=== PATIENT | male | born 1935 | race Caucasian/White ===

== ENCOUNTER → 2023-05-01 11:40 | Outpatient (REF) | payer OTHER, SELFPAY | LOC: HWRAD 11:40 | PROVIDERS: ATTENDING PHYSICIAN Internal Medicine Critical Care Medicine; FAMILY PHYSICIAN Family Medicine | DX: Z87.01 Personal history of pneumonia (recurrent) (principal); R91.8 Other nonspecific abnormal finding of lung field | CPT/HCPCS: 71250 ==

== ENCOUNTER 2023-05-03 21:34 | Inpatient (IN) | payer OTHER, SELFPAY ==
[2023-05-03] VITALS (11 sets, daily range): BP systolic 92–139; BP diastolic 51–75; BMI 27.8; BMI 28.1
[2023-05-03 19:35] LABS: Hematocrit 36.2 % (39.0-52.0); Hemoglobin 12.3 g/dL (13.0-18.0); Mean Corpuscular Hgb 32.3 pg (27.0-31.0); Mean Platelet Volume 11.1 fL (7.4-10.4); Platelet Count 143 10^3/uL (130-400); Red Blood Cell Count 3.81 10^6/uL (4.70-6.10); Red Cell Dist. Width 15.3 % (11.5-14.5); White Blood Cell Count 12.9 10^3/uL (4.8-10.8)
[2023-05-03 19:47] LABS: Lactic Acid 1.3 mmol/L (0.7-2.0)
[2023-05-03 19:50] LABS: ALT (SGPT) 15 U/L (0-50); AST (SGOT) 19 U/L (17-59); Albumin 3.4 g/dl (3.5-5.0); Alkaline Phosphatase 82 U/L (38-126); Blood Urea Nitrogen 30 mg/dl (9-20); Calcium 8.9 mg/dl (8.4-10.2); Carbon Dioxide 26 mmol/L (22-30); Chloride 102 mmol/L (98-107); Glucose 96 mg/dl (70-99); Potassium 3.9 mmol/L (3.5-5.1); Sodium 133 mmol/L (135-145); Total Bilirubin 2.1 mg/dl (0.2-1.3); Total Protein 5.7 g/dl (6.3-8.2); eGFR 48.65
[2023-05-03] MEDS: NSS 1000 IV ×2 (19:57→23:13)
[2023-05-03 20:03] LABS: Absolute Neutrophils -Man Diff 11.9 10^3/uL (1.4-6.5); Band Neutrophils 15 % (0-3); Lymphocytes 2 % (20-51); Segmented Neutrophils 78 % (42-75)
[2023-05-03 20:04] LABS: Monocytes 5 % (2-9); Normal RBC Morphology Yes; Platelets Checked Yes; Total Cells Counted 100
--- NOTE | 2023-05-03 20:32 | ED.GENMED ---
History of Present Illness
General
Chief Complaint: Breathing Problem
Source: patient and spouse
Exam Limitations: none
Time Seen by Provider: 05/03/23 19:06
Nursing documentation reviewed up to this point in time: agreed with
Travel History
Have you had any contact with someone who has COVID-19?: No
Do you have any symptoms of coronavirus? Fever > 100 degrees, chills, cough, shortness of breath, sore throat, loss of taste or smell, muscle aches, or headache?: Yes
Symptoms:: fever
History of Present Illness
History of Present Illness:
Patient to ED iw complaint of fever/chills, SOB. According to spouse symptoms first began on Apr.02, He was evaluated by PCP and place on zithromycin and levaquin for pneumonia as seen on CXR. Pulmonary nodule was also identified and he was
advised to have CT followup, completed on 05/01. Yesterday AM he began with fevers again. Today temp max 102. reports chills. He spoke with pulmonology office. CT results received today of bilateral pneumonia. He as advised by office to
come to ED for admission, IV antibiotics. Pulse ox on arrival 90% RA. BP 96/57
Past History
Past History
ED Past Medical History: CAD, HTN, Hypercholesterolemia, [place], Seizures and Other (CKD)
ED Past Surgical History: Appendectomy, Cardiac (RCA stent), Cholecystectomy and Other (Had Mohs surgery on face yesterday. Had no general anesthesia or Phelps Catheter)
Social History
Tobacco: Former smoker
Alcohol: Daily (Vodka martini)
Personal:
Living: with family
Review of Systems
Review of Systems
Allergies reviewed?: Yes
All Other Systems: ROS reviewed and negative except as documented in HPI and ROS
Constitutional: Reports fever, fatigue and chills
Respiratory: Reports cough and trouble breathing
Cardiac: Reports no symptoms
ABD/GI: Reports no symptoms
: Reports no symptoms
Musculoskeletal: Reports no symptoms
Skin: Reports no symptoms
Neurological: Reports weakness
Psychiatric: Reports no symptoms
Phy Exam
General Physical Exam
General Presentation: mild distress
General age: appears stated age
General Skin: warm and dry
General Habitus: normal
General Mental: alert
Cardiovascular Exam
Cardiovascular Exam: regular rate/rhythm
Pulmonary Exam
Pulmonary Exam: chest non tender
Cough: coarse cough
Breath Sounds: Crackles: left lower and right lower
Gastrointestinal Exam
Gastrointestinal Exam: normal bowel sounds, non tender, soft and no organomegaly
Musculoskeletal Exam
Musculoskeletal Exam: full ROM and neuro vasc intact
Skin Exam
Skin Exam: normal color, warm/dry and no rash
Psychiatric Exam
Psychiatric Exam: normal mood/affect
Scores
Heart Failure Risk
Heart Failure Risk Score: Not Applicable
Course
Orders/Labs/Results
Orders:
Orders
05/03/23 Dinner
Cholesterol Lowering
At Your Request: Limited Participation
Cholesterol Lowering: Sodium, 2 Gram
05/03/23 19:21
Complete Blood Count/With Diff Urgent
Comprehensive Metabolic Panel Urgent
Lactic Acid Urgent
Manual Differential Urgent
05/03/23 19:44
0.9% Sodium Chloride 1000 ml [Nss] 1,000 ml IV BOLUS
05/03/23 19:58
Blood Culture Q30M
IRA Source: Blood/Venous
Specimen Description:
Blood Culture Q30M
IRA Source: Blood/Venous
Specimen Description:
05/03/23 20:30
Aztreonam [Azactam] 2,000 mg IV NOW STA
Vancomycin 1 Gram/200 ml [Vancocin] 1 gram in 200 ml IV NOW
05/03/23 20:43
CR Chest - 2 Views Urgent
Comment:
Reason For Exam: SOB
05/03/23 21:06
Sputum Culture [Respiratory Culture/Gram Stain] Routine
IRA Source: Sputum
Specimen Description:
05/03/23 21:07
Admit/Transfer Patient As Directed
Co-Sign Provider:
Level of Care: Inpatient admission
Assign to:: Telemetry
Physician / Group: jose fink
Diagnosis: Sepsis 2/2 bilat pna, hypoxia
Reason for Telemetry: Arrhythmia
Date to Stop Telemetry: 05/06/23
Time to Stop Telemetry: 11:00
Reason for Hospitalization: Sepsis 2/2 bilat pna, hypoxia
Expected length of stay greater than two midnights?: Yes
ELOS- Estimated Length of Stay in days: 3
I certify the patient meets the requirements for IP care: Yes
Code Status As Directed
Resuscitation Status: Do not resuscitate
Reached after discussion with pt or family/Healthcare POA: Yes
Based on pt advanced directive or healthcare POA form: Yes
Decision communicated with: Per patient with at bedside
DNR Bracelet Application ONCE
05/03/23 21:15
0.9% Sodium Chloride 1000 ml [Nss] 1,000 ml IV BOLUS
05/03/23 21:30
COVID-19 Antigen Urgent
Source: Nasal Swab
Influenza A+B Rapid Molecular Urgent
IRA Source: Nasal Swab
Specimen Description:
05/03/23 22:22
0.9% Sodium Chloride [Nss (Preservative Free)] See Protocol IV PRN PRN
Acetaminophen [Tylenol] 650 mg PO Q4HPRN PRN
FOLic ACID [Folvite] 1 mg 0.9% Sodium Chloride 50 ml [Nss] 50 ml IV DAILYPRN
Lactated Ringers [Lr] 1,000 ml IV 80 mls/hr
Lorazepam [Ativan] 1 mg IV Q1HPRN PRN
Lorazepam [Ativan] 1 mg PO Q2HPRN PRN
Lorazepam [Ativan] 2 mg IV Q1HPRN PRN
05/03/23 22:22
Case Management Consult Once
Case Management Consult: Other
Comment: Substance abuse counseling
DIETARY CONSULT Routine
Reason for Consult: Nutrition support, possible refeeding guidelines
Urinalysis Routine
Date Specimen was Collected: 05/03/23
Time Specimen was Collected: 23:20
Activity As Directed
Activity Level: As Tolerated
MSAS SCORE As Directed
MSAS Score 0-4: Repeat MSAS every 2 hours until 0-4 for three consecutive assessments, then every 4 hours x 48
hours.
MSAS Score 5-7: For MILD withdrawl symptoms. Repeat MSAS and RASS every 2 hours
MSAS Score 8-11: For MODERATE withdrawal symptoms. Repeat MSAS and RASS every 1 hour. Consider ICU or IMU
level of care.
MSAS Score > 11: For SEVERE withdrawal symptoms. Repeat MSAS and RASS every 1 hour. Notify provider, consider
ICU level of care.
MSAS Additional Instructions: If no improvement or no decrease in score from severe to moderate within 12
hours, consult psychiatry
MSAS Notify Provider: Notify provider if patient requires more than 10 mg of Lorazepam in eight hour period.
Vital Signs As Directed
Frequency: Per unit guidelines
O2 Therapy [RESP] Routine
Nasal Cannula Liter Flow: 2 LPM
Titrate/Wean O2 to maintain O2 sat greater than (%): 92
Pulse Ox/spot Check [RESP] Routine
Quantity: 1
Rx Incentive Spirometry [RESP] Routine
Frequency: q1h while awake
Ot Eval And Treat Routine
Pt Eval And Treat Routine
Activity Level: As Tolerated
DX Deep Vein Thrombosis Video Routine
DX Deep Vein Thrombosis Video Routine
05/03/23 22:58
Alcohol Urgent
B-Hydroxybutyrate Urgent
GGTP Urgent
Magnesium Urgent
PTT Urgent
Phosphorus Urgent
Prothrombin Time Urgent
05/04/23 06:00
Complete Blood Count/With Diff IN AM
Comprehensive Metabolic Panel IN AM
05/04/23 08:00
FOLic ACID [Folvite] 1 mg PO DAILY
Levetiracetam [Keppra] 500 mg PO BID
Rosuvastatin Calcium [Crestor] 40 mg PO DAILY
Thiamine Injection 200 mg IV Q12
05/04/23 18:00
Enoxaparin Sodium [Lovenox] 30 mg SC QPM
05/04/23 22:00
LevoFLOXacin 250 MG/50 ML [Levaquin] 250 mg in 50 ml IV Q24H
05/05/23 06:00
Complete Blood Count/With Diff IN AM
Comprehensive Metabolic Panel IN AM
05/06/23 06:00
Complete Blood Count/With Diff IN AM
Comprehensive Metabolic Panel IN AM
05/06/23 11:00
DC Protocol for Telemetry ONCE
05/07/23 08:00
Thiamine HCl [Vitamin B1] 100 mg PO BID
Abnormal Lab Results
05/03/23
19:21
WBC 12.9 H 10^3/uL
(4.8-10.8)
RBC 3.81 L 10^6/uL
(4.70-6.10)
Hgb 12.3 L g/dL
(13.0-18.0)
Hct 36.2 L %
(39.0-52.0)
MCV 95.0 H fL
(80.0-94.0)
MCH 32.3 H pg
(27.0-31.0)
RDW 15.3 H %
(11.5-14.5)
MPV 11.1 H fL
(7.4-10.4)
Abs Neuts (Manual) 11.9 H 10^3/uL
(1.4-6.5)
Segmented Neutrophils 78 H %
(42-75)
Band Neutrophils 15 H %
(0-3)
Lymphocytes (Manual) 2 L %
(20-51)
Sodium 133 L mmol/L
(135-145)
BUN 30 H mg/dl
(9-20)
Creatinine 1.4 H mg/dL
(0.7-1.3)
Total Bilirubin 2.1 H mg/dl
(0.2-1.3)
Total Protein 5.7 L g/dl
(6.3-8.2)
Albumin 3.4 L g/dl
(3.5-5.0)
05/03/23 19:21
05/03/23 19:21
Vital Signs
Initial and Last Documented VS:
Initial Vital Signs
Temp Pulse Resp BP Pulse Ox
98.5 F 70 20 100/51 92
05/03/23 17:12 05/03/23 17:12 05/03/23 17:12 05/03/23 17:12 05/03/23 17:12
Last Documented Vital Signs
Temp Pulse Resp BP Pulse Ox
97.9 F 66 18 134/71 98
05/03/23 22:20 05/03/23 22:20 05/03/23 22:20 05/03/23 22:20 05/03/23 22:20
*Radiology
Radiology exam reviewed: radiology read reviewed
*Pulse Oximetry
Patient hypoxic: yes
*Critical Care Note
Total Time (30-74mins, 75-104mins- exclusive of procedures): Not Applicable
ED Attending Note
-
Portions of this chart may have been created with voice recognition software.� Occasional wrong word or��sound alike� substitutions may have occurred due to the inherent limitations of voice recognition software.
Discharge Plan
Departure
Patient Disposition: Admit
Date of Disposition: 05/03/23
Time of Disposition: 20:42
Presentation/result/management discussed w/ accepting MD/DO: Hospitalist
Patient with high blood pressure during this ER visit?: No
Condition: Fair
Covid-19: Not Applicable
Discharge Problem:
Pneumonia
Interventions
Interventions:
*Risk Screen - Suicide Last Done: 05/03/23 20:00
*General Assessment Last Done: 05/03/23 20:00
*Neglect/Abuse Screening Last Done: 05/03/23 20:00
*ED COVID-19 Vaccine History Last Done: 05/03/23 22:33
*Nursing Disposition Last Done: 05/03/23 22:29
ED- Cardiac Assessment Last Done: 05/03/23 20:00
ED- Pulmonary Assessment Last Done: 05/03/23 20:00
Discharge Date and Time
Discharge Date/Time: 05/03/23 22:30
--- NOTE | 2023-05-03 20:51 | HPS.HSE ---
Addendum entered and electronically signed by Cole Felix MD 05/03/23 21:25:
I saw and examined the patient.
The WORM RAISER or PA's note was reviewed and I agree with the note.
Comment:
HPI
87M see at ER for evaluation of fever/chills, SOB with onset since 04/02/23.
Evaluated by PCP - Rx with Zithromax and Levaquin for pneumonia as seen on CXR.
Pulmonary nodule was also identified and he was advised to have CT followup, completed on 05/01.
Yesterday AM - noted recurrence of fevers with temp max 102. POS chills.
Pul vs PCP send patient to ER .
Pulse ox on arrival 90% RA. BP 96/57
PMHX: CAD, HTN, Hypercholesterolemia, PR, Seizures and Other (CKD)
PSHX: Appendectomy, Cardiac (RCA stent), Cholecystectomy and Other (Had Mohs surgery on face yesterday. Had no general anesthesia or Phelps Catheter)
SHX:
Tobacco: Former smoker
Alcohol: Daily (Vodka martini)
Reviewed VS: afebrile T max 102 at home RR18 POx 92 on RA HR 62 BP 110/52
PE
Gen: mild distress
HEENT: anicteric
Neck: supple
Lungs: b/l basilar crackles. No wheeze
Cor: RRR S1 S2
Abdomen: soft abdomen NT NG
PULMONOLOGIST INTENSIVIST: AAO3 NFND
MS: no edema
Psych: appropriate
Data
WCC 12.9 w Lt shift
Bands 15%
Hgb 12.3
Na 133
BUN 30
Cr 1.4 - base line Cr 0.9 in
eGFR 48 - baseline GFR > 60
TB 2.1
Albumin 3.4
BCx x 2
05/03/23 CXR
New moderate bilateral lower lobe pneumonia.
05/03/23 CT Chest W/o Iv Contrast
- moderate patchy interstitial and confluent alveolar airspace disease in the right middle lobe and basilar portions of both lower lobes consistent with multifocal pneumonia
- 7 mm probably benign noncalcified subpleural pulmonary nodule in the right upper lobe which could be further evaluated for stability with repeat noncontrast CT chest in 6-12 months.
ASSESSMENT & PLAN
Sepsis with hypotension 2/2 PNA
Bilateral multifocal pneumonia per CXR and CTC
Asso. Leucocytosis with Lt shift
R/O bacteremia
- Septic fluid bolus then LR IVF
- IV Vancomycin and IV LVQ ( current GFR dose ) in place of Aztreonam
- Held Propranolol due to hypotension
- LA pending
- f/u BCx
- fall precautions
- Pul consult
DINA 2/2 sepsis
Mild hyponatremia
- f/u Cr in response to IVF
- Adjust Vancomycin and LVQ according to GFR in next 24Hrs
Hypotension 2/2 sepsis
Essential HTN
- Held [employer] Propranolol and lisinopril due to hypotension
- Observe BP in response to septic fluid bolus
7 mm probably benign noncalcified subpleural pulmonary nodule in the right upper lobe
- To repeat noncontrast CT chest in 6-12 months.
HLD
- cont. Rosuvastatin
HX CAD and PR
- cont. ASA and Rosuvastatin
Seizure disorder
- cont. PO l Keppra
HX daily one Vodka martini a day
Low risk for ETOH WDS
- MSAS
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
- on Fenestride
Constipation HX
DVT Px: LMWH per current GFR
Code: Full
IP TLM
Original Note:
Family Physician
-
Family Physician: Roberta George DO
Chief Complaint
-
Fever, chills, shortness of breath
History of Present Illness
87-year-old male complaining of fever chills and shortness of breath for the past month. Patient was evaluated by PCP placed on Zithromax and Levaquin for pneumonia also had a pulmonary nodule identified on 05/01. Yesterday he restarted with fevers
again according to the with a Tmax of 102. He had CT chest today showing bilateral pneumonia and was hypoxic at 90% on room air on arrival to the ER. The patient reports a runny nose with a nonproductive cough and a fever. He denies
headache, sore throat, sneezing, chest pain, palpitations, abdominal pain, nausea, vomiting, diarrhea, urinary symptoms. The patient is past medical history of BPH, HTN, PR, CAD, RCA stent, HLD, basal cell carcinoma with Mohs procedure, former
smoker.
Medical History
Past Medical History
Past Medical History: Reports Other ( BPH, HTN, PR, CAD, RCA stent, HLD, basal cell carcinoma with Mohs procedure, former smoker.)
Past Surgical History: Reports Other (Robotic prostatectomy stone removal December 2021)
Social History
Tobacco: Former Smoker (1 pack a day x 40 years quit age 57)
Alcohol: Daily (1 vodka martini)
Drug: None
Personal:
Living: With Family
Employment: Retired
Family History
Family History: Other (Father age 79 valvular heart problems, mother old age age 86 history hypertension)
Allergies / Home Medications
Allergies reflects when Allergies were last updated in [facility].
Home Medications with original date entered in [facility]
Allergy/Medication List:
Allergies
Allergy/AdvReac Type Severity Reaction Status Date / Time
amoxicillin [From Augmentin] Allergy Unknown Verified 05/03/23 17:12
clavulanic acid Allergy Unknown Verified 05/03/23 17:12
[From Augmentin]
ezetimibe [From Zetia] Allergy Unknown Verified 05/03/23 17:12
Sulfa (Sulfonamide Allergy Unknown Verified 05/03/23 17:12
Antibiotics)
Home Medications
aspirin 81 mg tablet,delayed release 81 mg PO DAILY Blood clot prevention/tx 03/12/19
lisinopril 2.5 mg tablet 2.5 mg PO DAILY Blood pressure 03/12/19
levetiracetam 500 mg tablet 500 mg PO BID #60 tabs 03/13/19
finasteride 5 mg tablet (Proscar) 5 mg PO DAILY Urinary issue 01/01/22
rosuvastatin 40 mg tablet (Crestor) 40 mg PO DAILY High cholesterol 01/01/22
propranolol 60 mg tablet 60 mg PO Daily Blood pressure 01/04/22
acetaminophen 500 mg tablet (Tylenol Extra Strength) 1,000 mg PO QIDPRN PRN fever 05/03/23
ibuprofen 200 mg tablet (Advil) 200 mg PO QIDPRN PRN mild pain 05/03/23
Review of Systems
-
History Source: Patient and Family ( at bedside)
A 12 point ROS was completed and negative except as noted: Yes
Constitutional: Reports Fever and Chills
EENT: Reports Runny Nose; Denies Sore Throat
Respiratory: Reports Cough (Nonproductive) and Trouble Breathing
Cardiac: Denies Chest Pain, Diaphoresis, Palpitations or Syncope
Abdomen/GI: Denies Abdominal Pain, Nausea, Vomiting, Diarrhea, Constipated, Bloody Stools or Black Stools
: Denies Dysuria, Frequency, Flank Pain, Incontinence or Difficulty Voiding
Musculoskeletal: Denies Joint Pain or Edema
Skin: Denies Itching or Rash
Neurological: Denies Dizzy, Headache or Weakness
Endocrine: Reports No Symptoms
Hematologic/Lymphatic: Reports No Symptoms
Psych: Reports Calm
Physical Exam
Vital Signs
Vital Signs
Temp Pulse Resp BP Pulse Ox
98.5 F 62 18 108/52 98
05/03/23 17:12 05/03/23 20:00 05/03/23 20:00 05/03/23 20:00 05/03/23 20:00
Physical Exam
General: Comfortable, Conversant, Fever and Chills; No Pain
HEENT: NormoCephalic, Anicteric, PERRLA, [place] Conjunctivae and No Ptosis
Respiratory: Clear; No Wheezes, Rales or Rhonchi
Cardiac: S1/S2 and Regular Rhythm; No Murmur, Rub, Gallop or Peripheral Edema
Breast: Deferred by me
GI: Soft, Non Tender, Non Distended, Normal Bowel Sounds and No Hepatosplenomegaly
Rectal: Deferred by Provider
Genito-urinary: Deferred by me
Musculoskeletal: No Clubbing, No Cyanosis and No Edema
Skin: Warm and Dry; No Rash
Neuro: AO x 3, No Motor Deficits, Nonfocal/grossly intact, Cranial Nerves Intact and Other (Chronic bilateral hearing aids in place); No Slurred Speech, Facial Droop or Tremors
Psych: Calm
Laboratory Results
-
05/03/23 19:21
05/03/23 19:21
Laboratory Results
Lactic Acid 1.3 mmol/L (0.7-2.0) 05/03/23 19:21
Total Bilirubin 2.1 mg/dl (0.2-1.3) H 05/03/23 19:21
AST 19 U/L (17-59) 05/03/23 19:21
ALT 15 U/L (0-50) 05/03/23 19:21
Alkaline Phosphatase 82 U/L (38-126) 05/03/23 19:21
Data Reviewed
-
Diagnostic Radiology: Report Reviewed by me
CT Scan: Report Reviewed by me
Lab Data: Labs Reviewed by me
Impression/Plan
-
Impression/plan:
Admit to Tele
#Acute hypoxic resp insufficiency 2/2 bilateral PNA
#Sepsis 2/2 bilateral PNA
-90% RA, 96/57
-Blood cultures x 2, sputum culture
-Check influenza, COVID
-Patient given IV vancomycin in ER
-IV Levaquin 500 mg now then 250 Mg daily
-IV NSS sepsis bolus, follow BMP
Then IV LR
-Consult pulmonary
-Tylenol as needed
-Follow CBC, CMP
#Hypotension/HTN�benign
hold lisinopril 2.5 mg daily, propranolol 60 mg daily
IV sepsis bolus
#DINA 2/2 sepsis
Creat 1.4 was 0.9
-IV NSS sepsis bolus, follow BMP
-Then IV LR
#Daily alcohol use
Patient drinks 1 vodka martini daily
-MSAS with protocol - low risk
#CAD/PR
#History of RCA stent
-Continue aspirin, Crestor hold propranolol due to hypotension
#Seizure disorder
-Continue Keppra 500 mg twice daily
#HLD
-Continue Crestor 40 mg daily
#Former smoker
Prior 1 pack a day 42 years stopped age 57
#Mohs surgery to face/basal cell CA
#BPH/massive, bladder stones
-Robotic prostatectomy stone removal December 2021
-Hold Proscar 5 mg daily due to hypotension
#[place] with bilateral hearing aids
DVT prophylaxis
Subcu Lovenox
DNR per patient with present at bedside
[2023-05-03] MEDS: AZACTAM 2000 MG IV (21:01)
[2023-05-03] MEDS: VANCOCIN 200 IV (21:02)
[2023-05-03 21:51] LABS: COVID-19 Antigen Negative (Negative)
--- NOTE | 2023-05-03 22:30 | PTCARENOTE ---
Pt arrived from ED via stretcher. Pt amb to bed from hallway with min assist. AAOx3 - [place] - HOBBS Right Ear. Essential tremors present. Lungs w/ crackles b/l on 2L o2. Sutures to R ear area and R neck from recent Mohs procedure.
[2023-05-03 23:27] LABS: INR 1.27; PT 15.8 Sec (11.4-14.6)
[2023-05-03 23:28] LABS: APTT 37.6 Sec (23.4-35.0)
[2023-05-03 23:34] LABS: Urine Albumin Trace (Neg - Trace); Urine Bilirubin 1+ (Negative); Urine Character Clear (Clear); Urine Color Yellow; Urine Glucose Negative (Negative); Urine Ketone Trace (Negative); Urine Leukocyte Trace (Negative); Urine Nitrite Negative (Negative); Urine Occult Blood 2+ (Negative); Urine Specific Gravity 1.025 (<1.030); Urine Urobilinogen Negative (Neg - 1+)
[2023-05-03 23:41] LABS: Urine Squamous Cell 16-20 /LPF (Few)
[2023-05-03 23:42] LABS: Urine Amorphous Seen; Urine Granular Cast 0-2 /LPF (0)
[2023-05-03 23:43] LABS: Urine Bacteria Moderate (Negative); Urine Red Blood Cell 0-2 /HPF (0-2)
[2023-05-04] VITALS (8 sets, daily range): BP systolic 116–155; BP diastolic 57–81; PULSE 72–74; O2SAT 94–95
[2023-05-04 00:07] LABS: GGTP 17 U/L (15-73); Magnesium 2.1 mg/dl (1.6-2.3); Phosphorus 3.1 mg/dl (2.5-4.5)
[2023-05-04 00:08] LABS: Alcohol None Detected
[2023-05-04 00:14] LABS: B-Hydroxybutyrate 0.14 mmol/L (0.02-0.27)
[2023-05-04] MEDS: LEVAQUIN 100 IV (00:25)
[2023-05-04] MEDS: LR 1000 IV ×2 (00:26→15:39)
[2023-05-04 07:31] LABS: % Basophils 0.3 % (0-2); % Eosinophils 1.6 % (0-6); % Immature Granulocytes 1.3 % (0-0.5); % Lymphocytes 3.2 % (20.5-51.1); % Monocytes 8.9 % (1.7-9.3); % Neutrophils 84.7 % (42.2-75.2); Absolute Eosinophils 0.1 10^3/uL (0-0.7); Absolute Immature Granulocytes 0.1 10^3/uL (0-0.05); Absolute Lymphocytes 0.2 10^3/uL (1.2-3.4); Absolute Monocytes 0.7 10^3/uL (0.1-0.6); Absolute Neutrophils 6.3 10^3/uL (1.4-6.5); Hematocrit 31.6 % (39.0-52.0); Hemoglobin 10.3 g/dL (13.0-18.0); Mean Corp Hgb Conc. 32.6 g/dL (33.0-37.0); Mean Corpuscular Hgb 32.4 pg (27.0-31.0); Mean Corpuscular Volume 99.4 fL (80.0-94.0); Nucleated Red Blood Cells % 0 % (-); Red Blood Cell Count 3.18 10^6/uL (4.70-6.10); White Blood Cell Count 7.4 10^3/uL (4.8-10.8)
[2023-05-04] MEDS: FOLVITE 1 MG PO (08:04)
[2023-05-04] MEDS: THIAMINE INJECTION 200 MG IV ×2 (08:04→21:07)
[2023-05-04] MEDS: CRESTOR 40 MG PO (08:04)
[2023-05-04] MEDS: KEPPRA 500 MG PO ×2 (08:04→21:07)
[2023-05-04 08:07] LABS: ALT (SGPT) 12 U/L (0-50); AST (SGOT) 16 U/L (17-59); Albumin 2.4 g/dl (3.5-5.0); Alkaline Phosphatase 65 U/L (38-126); Blood Urea Nitrogen 30 mg/dl (9-20); Calcium 8.3 mg/dl (8.4-10.2); Carbon Dioxide 27 mmol/L (22-30); Chloride 102 mmol/L (98-107); Estimated Creatinine Clearance 63 ml/min; Glucose 83 mg/dl (70-99); Potassium 3.6 mmol/L (3.5-5.1); Sodium 136 mmol/L (135-145); Total Protein 4.4 g/dl (6.3-8.2); eGFR > 60.00
--- NOTE | 2023-05-04 14:48 | W.PN.HOSP.TC ---
Today's Communication/Plan
-
Continue with antibiotics.
Consult ID
Assessment / Plan
Assessment / Plan
#Acute hypoxic resp insufficiency 2/2 bilateral PNA
#Sepsis� 2/2 bilateral PNA
- Pneumonia poorly responsive to OP tx
- On RA today
- COVID/Flu neg
- CW ABX
- 1/2 blood cultures positive for gram-positive cocci in clusters-await identification. Patient did receive vancomycin.
-Currently on IV vancomycin.
-Consult ID.
Await pulmonary input.
#Hypotension/HTN�benign
-
-Improved today. Continue to hold lisinopril 2.5 mg daily, propranolol 60 mg daily
-Status IV sepsis bolus
#DINA 2/2 sepsis
Creat 1.4 was 0.9
Improved to creatinine 0.9 again.
-Continue with IV fluids today
#Daily alcohol use
Patient drinks 1 vodka martini daily
-MSAS with protocol - low risk
#CAD/MA
#History of RCA stent
-Continue aspirin, Crestor hold propranolol due to hypotension
#Seizure disorder
-Continue Keppra 500 mg twice daily
#HLD
-Continue Crestor 40 mg daily
#Former smoker
Prior 1 pack a day 42 years stopped age 57
#Mohs surgery to face/basal cell CA
#BPH/massive, bladder stones
-Robotic prostatectomy stone removal December 2021
-Hold Proscar 5 mg daily due to hypotension
#[place] with bilateral hearing aids
DVT prophylaxis
Subcu Lovenox
DNR per patient with present at bedside
Anticipated Discharge: > 48 hours
Subjective/Interval History
-
Date of Service: May 04, 2023
Denies shortness of breath. Cough present but not much productive.
No fevers today.
No nausea vomiting. Denies any chest pain.
Objective Data
-
Labs:
Laboratory Results
05/04/23
07:09
WBC 7.4
Hgb 10.3 L
Hct 31.6 L
Plt Count
Sodium 136
Potassium 3.6
Chloride 102
Carbon Dioxide 27
BUN 30 H
Creatinine 0.9
Glucose 83
Calcium 8.3 L
Total Bilirubin 1.0 D
AST 16 L
ALT 12
Alkaline Phosphatase 65
Vital Signs:
Vital Signs
Temp Pulse Resp BP Pulse Ox
98.8 F 74 16 149/81 94
05/04/23 11:51 05/04/23 11:51 05/04/23 11:51 05/04/23 11:51 05/04/23 11:51
I&O
05/03/23 05/04/23 05/05/23
06:59 06:59 06:59
Intake Total 480 / 480
Output Total 225 / 225
Balance 255 / 255
Review of Systems
-
EENT: Denies Sore Throat
Abdomen/GI: Denies Abdominal Pain, Nausea or Vomiting
Neuro: Denies Dizzy
Physical Exam
-
General: No Apparent Distress
HEENT: Moist Mucous Membranes
Respiratory: Crackles (coarse in Left more than right base); Negative Wheezes
Cardiac: Regular Rhythm and S1/S2
GI: Soft
Neuro: AO x 3
Data Reviewed
-
Labs: Labs Reviewed by me
--- NOTE | 2023-05-04 16:43 | CM ---
Addendum entered by Gauri Barroso 05/04/23 16:53:
PT evaluated patient and recommends Outpatient Therapy
Original Note:
Met with patient and at the bedside; CM consult and initial assessment completed
Pharmacy verified: [facility]
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
PLOF: patient reported he is independent with ambulation, stairs, and ADLs; steps have railings; drives
DME: none
SNF/Rehab/Home Care utilization history: none; had outpatient PT after past knee surgery
Transport: will provide ride home
CM Consult: reported that she and have an alcoholic beverage before dinned every evening; discussed if there was a need for counseling; declined
Plan: discharge to home when medically stable.
--- NOTE | 2023-05-04 16:48 | CON.PUL ---
Consultation
Consultation Request
Date/Time Consultation Requested: 05-04-23
Date/Time Consultation Performed: 05-04-23
Requesting Provider: Hospitalist
Medical History
Allergies / Home Medications
Allergies
Allergy/AdvReac Type Severity Reaction Status Date / Time
amoxicillin [From Augmentin] Allergy Unknown Verified 05/03/23 17:12
clavulanic acid Allergy Unknown Verified 05/03/23 17:12
[From Augmentin]
ezetimibe [From Zetia] Allergy Unknown Verified 05/03/23 17:12
Sulfa (Sulfonamide Allergy Unknown Verified 05/03/23 17:12
Antibiotics)
Home Medications
Medication Instructions Recorded Confirmed Last Taken Type
aspirin 81 mg tablet,delayed 81 mg PO DAILY Blood clot 03/12/19 05/03/23 05/03/23 History
release prevention/tx
lisinopril 2.5 mg tablet 2.5 mg PO DAILY Blood pressure 03/12/19 05/03/23 05/03/23 History
levetiracetam 500 mg tablet 500 mg PO BID #60 tabs 03/13/19 05/03/23 05/03/23 Rx
finasteride 5 mg tablet (Proscar) 5 mg PO DAILY Urinary issue 01/01/22 05/03/23 05/03/23 History
rosuvastatin 40 mg tablet (Crestor) 40 mg PO DAILY High cholesterol 01/01/22 05/03/23 05/03/23 History
propranolol 60 mg tablet 60 mg PO Daily Blood pressure 01/04/22 05/03/23 05/03/23 History
acetaminophen 500 mg tablet 1,000 mg PO QIDPRN PRN fever 05/03/23 05/03/23 05/03/23 History
(Tylenol Extra Strength)
ibuprofen 200 mg tablet (Advil) 200 mg PO QIDPRN PRN mild pain 05/03/23 05/03/23 05/03/23 History
Review of Systems
Vitals / Labs / Diagnostic Testing
Vital Signs
Temp Pulse Resp BP Pulse Ox
97.4 F 74 16 133/65 94
05/04/23 15:39 05/04/23 15:39 05/04/23 15:39 05/04/23 15:39 05/04/23 15:39
Lab Data
05/04/23 07:09
05/04/23 07:09
Laboratory Results
05/03/23
22:58
PT 15.8 H
INR 1.27
APTT 37.6 H
Microbiology
05/03/23 19:58 Blood/Venous Blood Culture - Preliminary
Positive culture in progress
05/03/23 19:58 Blood/Venous Gram Stain - Preliminary
05/03/23 21:30 Nasal Swab Influenza Types A & B (MITALI) - Final
Negative for Influenza A & B, NAAT
Negative results must be combined with clinical observations
and patient history.
Nucleic Acid Amplification test (NAAT)performed on the
[employer] platform.
Diagnostic Testing:
Assessment
-
Assessment:
Mr Jeffrey Shine is an 87/M adm 05-03 with fever and cough. Of note, recurrent resp infections starting with COVID in mid 2022, then bilateral infiltrates in early Apr 2023 and treated as outpatient with azithromycin/levofloxacin (negative RSV,
COVID, flu). Referred to pulm office for evaluation of cough and small pulmonary nodules on CT abd (Nov 2022, mm size of 6 mm at RLL, 4mm RLL, 8 mm RLL), seen in initial visit by Dr Cintron on 04-24, rec dedicated chest CT, PFT and follow up in [address] 05-01-23 showed new dense patchy infiltrates in lower lobes and RML, a spot of GGO in RUL, 7 mm (probably benign) nodule at RUL. called pulm office reported patient with cough, was not feeling well, temp up to 101F, POx 90-93% and
was advised to come to ER. At ER, BP 96/56, started on IV atbs (vanco/levof) and fluids
At time of visit, on RA, conversant, states cough has resolved since adm 05-03. Denies dyspnea at rest, CP, n/v/d, dysphagia.
Impression:
Bilateral patchy dense pulm infiltrates, RUL GGO opacity
Resolved leukocytosis
GPC clusters on 1/2 blood cxs 05-03
Interim mild anemia
Resolved hyponatremia and ^Cr
Normal LA
Abnormal UA: bacteriuria
COVID/flu negative
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
HTN
CAD
Seizures on levetiracetam
Prostate adenoma s/p partial prostatectomy
Skin cancer, s/o XRT, Mohs
Appendectomy
Cholecystectomy
Bilateral TKR
R hip replacement
Former smoker
Plan:
Resp feliciano stable on RA, POx 94% at rest
Reports interim resolution of cough since adm
Recent bilateral basilar infiltrates on CXR, s/p therapy with azithomycin/levofloxacin as outpatient
Low BP, hyponatremia, ^Cr, quickly resolved with IVFs on DOA
CXR from adm with enlarging basilar infiltrates as c/w 04-03; but no fever, tachycardia, tachypnea
CXR findings correspond to CT findings from 05-01
Rule out aspiration, speech evaluation rec
Keep asp precs
Procure sputum cx
Follow blood cxs (one set with GPC clusters likely contaminant)
Continue vancomycin for time being
As rec by ID, changed levofloxacin with cefepime
Check PCT
Return to follow up with [facility] upon d/c
D/w Mr Shine
Diagnostic tests:
CXR 05-03-23 c/w 04-03-23, no previous films. Baseline with bibasilar infiltrates. Current film with increased R basilar and L basilar infiltrates
Chest CT 05-01-23
New dense patchy infiltrates in lower lobes and RML (as c/w CT abd Nov 2022), a spot of GGO in RUL, 7 mm (probably benign) nodule at RUL.
TTE 06-12-21
CONCLUSIONS
Left ventricular ejection fraction is 70-75%. Normal regional wall motion.
Stage I diastolic dysfunction suggestive of abnormal relaxation.
Normal right ventricular size and function.
Mitral valve opens normally. Mild moderate mitral regurgitation.
Trileaflet aortic valve. Aortic sclerosis without stenosis. Trace aortic regurgitation.
Mild tricuspid regurgitation. Estimated pulmonary artery pressure of 30-35 mmHg.
Mildly dilated aortic root with Sinus of Valsalva measuring 3.8 cm.
Compared to previous echo on 03/13/2019, slightly progressive mitral regurgitation is noted.
--- NOTE | 2023-05-04 17:06 | CON.ID ---
Consultation
-
Date/Time Consultation Requested: 05/04/2023 1446
Date/Time Consultation Performed: 05/04/2023 1710
Requesting Provider: Dr. Florentin Matson
Performing Provider: Dr. Lizet Vu
Reason for Consultation: PNA
Chief Complaint / Past History
Chief Complaint
Fever
History of Present Illness
87-year-old male with hypertension, CAD, diastolic CHF, seizure who presented to the hospital on 05/03 due to fever. He states he had COVID 6 months ago and pneumonia which improved. In the beginning of April he developed cough productive of
gonzales-hunt sputum with fever 102. April 03, 2023 chest x-ray showed new bilateral lower lobe airspace disease. RSV, COVID, influenza tests were negative. He was treated with a course of azithromycin and levofloxacin. He was referred to Pulmonary
for persistent cough and recent PNA. Pulm ordered chest CT to evaluate pulm nodule. 05/[address]: Multifocal pneumonia and probably benign 7 mm pulmonary nodule in the right upper lobe. On May 02 patient was not feeling well. Was having
fever 99-101. O2 sat 90 to 93%. Yesterday his called pulmonary who recommended he come to the hospital. His blood pressure was slightly low 96/56. He was started on IV vancomycin and levofloxacin. Patient states that his cough is virtually
resolved even prior to coming to the hospital. He denies shortness of breath. He has rhinorrhea for several weeks. No sinus pain. No sore throat. No diarrhea. No dysuria or flank pain. No knee pain. No right hip pain. No ill contacts. He
swallows well. He reports he feels well.
Past History
Additional Past Medical History:
Hypertension
Dyslipidemia
CAD status post stent
dCHF
Seizure
Pulmonary nodule
Prostate adenoma s/p partial prostatectomy
Skin cancer, h/o XRT, MOHs
Appendectomy
Cholecystectomy
Bilateral total knee replacement
Right hip replacement
Allergy History:
amoxicillin [From Augmentin] Allergy (Verified 05/03/23 17:12)
Unknown
clavulanic acid [From Augmentin] Allergy (Verified 05/03/23 17:12)
Unknown
ezetimibe [From Zetia] Allergy (Verified 05/03/23 17:12)
Unknown
Sulfa (Sulfonamide Antibiotics) Allergy (Verified 05/03/23 17:12)
Unknown
Medications Reviewed: Yes
Current Antibiotics:
Vancomycin
Levofloxacin
Social History
Tobacco: Former Smoker
Alcohol: Daily
Drug: None
Personal:
Living: With Family
Family History
Family History: Not Pertinent
Review of Systems
Review of Systems
General: Fever; Negative Chills or Change in Appetite
HEENT: Negative Headache or Pharyngitis
Respiratory: Negative Dyspnea or Sputum Production
Gasteroenterology: Negative Nausea or Vomiting
Genital / Urological: Negative Dysuria or Flank Pain
Endocrine: Negative Weakness
Skin / Hair / Nails: Negative Rash
Neurological: Negative Headache or Dizziness
All systems: All other systems were reviewed and were negative
Vital Signs
Temp Pulse Resp BP Pulse Ox
97.4 F 74 16 133/65 94
05/04/23 15:39 05/04/23 15:39 05/04/23 15:39 05/04/23 15:39 05/04/23 15:39
Physical Exam
Physical Exam
Constitutional: No Acute Distress and Comfortable
Head: Other (No frontal or maxillary sinus tenderness. Recent Mohs surgery incisions on anterior left ear and mastoid clean without drainage or erythema.)
Eyes: No Conjunctival Hemorrhage and Sclera Anicteric
Cardiovascular: Regular Rate and S1/S2
Pulmonary: Other (mild left base crackles)
Gastrointestinal: Soft, Non Tender, Non Distended and Normal Bowel Sounds
Extremities: Negative Edema
Neurological: AO x 3
Lab / Diagnostic Study Results
05/04/23 07:09
05/04/23 07:09
Abs Immat Gran (auto) 0.1 10^3/uL (0-0.05) H 05/04/23 07:09
Absolute Neuts (auto) 6.3 10^3/uL (1.4-6.5) 05/04/23 07:09
Absolute Lymphs (auto) 0.2 10^3/uL (1.2-3.4) L 05/04/23 07:09
Absolute Monos (auto) 0.7 10^3/uL (0.1-0.6) H 05/04/23 07:09
Absolute Basos (auto) 0.0 10^3/uL (0-0.2) 05/04/23 07:09
Total Counted 100 05/03/23 19:21
Immature Gran % 1.3 % (0-0.5) H 05/04/23 07:09
Neutrophils % 84.7 % (42.2-75.2) H 05/04/23 07:09
Lymphocytes % 3.2 % (20.5-51.1) L 05/04/23 07:09
Monocytes % 8.9 % (1.7-9.3) 05/04/23 07:09
Eosinophils % 1.6 % (0-6) 05/04/23 07:09
Basophils % 0.3 % (0-2) 05/04/23 07:09
Abs Neuts (Manual) 11.9 10^3/uL (1.4-6.5) H 05/03/23 19:21
Segmented Neutrophils 78 % (42-75) H 05/03/23 19:21
Band Neutrophils 15 % (0-3) H 05/03/23 19:21
Lymphocytes (Manual) 2 % (20-51) L 05/03/23 19:21
PT 15.8 Sec (11.4-14.6) H 05/03/23 22:58
INR 1.27 05/03/23 22:58
Lactic Acid Cancelled 05/03/23 19:43
Urine WBC 3-5 /HPF (0-5) 05/03/23 23:24
Ur Squamous Epith Cells 16-20 /LPF (Few) 05/03/23 23:24
Microbiology Results
Micro:
05/03/23 19:58 Blood Culture - Preliminary
Blood/Venous Positive culture in progress
Gram Stain - Preliminary
05/03/23 21:30 Influenza Types A & B (MITALI) - Final
Nasal Swab Negative for Influenza A & B, NAAT
Negative results must be combined with clinical observations
and patient history.
Nucleic Acid Amplification test (NAAT)performed on the
[employer] NOW platform.
05/03/23 19:58 Blood Culture - Pending
Blood/Venous
05/03/23 CXR: Bibasilar opacification at least in part suggesting pneumonia, improved on the right.
05/01/[address]: There is moderate patchy interstitial and confluent alveolar airspace disease in the right middle lobe and basilar portions of both lower lobes consistent with multifocal pneumonia. here is a 7 mm probably benign noncalcified
subpleural pulmonary nodule in the right upper lobe which could be further evaluated for stability with repeat noncontrast CT chest in 6-12 months.
04/03/23 CXR: New moderate bilateral lower lobe pneumonia.�
Assessment / Plan
# GPC clusters bacteremia 1 of 2 sets
-suspect contaminant
- repeat blood cx's.
- Can continue IV Vancomycin for now pending identification.
# Leukocytosis/ bandemia resolved.
# Reported fever at home.
- Unclear if due to pneumonia. Pt reports cough is almost resolved. Repeat CXR shows improving bibasilar opacity
Recent PNA treated with azithromycin and levofloxacin.
- Check procalcitonin in am.
- replace levofloxacin with cefepime for now.
[2023-05-04] MEDS: STERILE WATER FOR INJECTION 10 ML IV (18:05)
[2023-05-04] MEDS: MAXIPIME 2000 MG IV (18:05)
[2023-05-04] MEDS: LOVENOX 30 MG SC (18:05)
[2023-05-05] MEDS: LR 1000 IV (02:33)
[2023-05-05 03:29] VITALS: BP 159/84
[2023-05-05] MEDS: MAXIPIME 2000 MG IV ×2 (06:02→17:47)
[2023-05-05] MEDS: STERILE WATER FOR INJECTION 10 ML IV ×2 (06:02→17:48)
[2023-05-05 07:27] LABS: % Basophils 0.5 % (0-2); % Eosinophils 1.5 % (0-6); % Immature Granulocytes 0.9 % (0-0.5); % Lymphocytes 4.5 % (20.5-51.1); % Monocytes 9.9 % (1.7-9.3); % Neutrophils 82.7 % (42.2-75.2); Absolute Eosinophils 0.1 10^3/uL (0-0.7); Absolute Immature Granulocytes 0.1 10^3/uL (0-0.05); Absolute Lymphocytes 0.3 10^3/uL (1.2-3.4); Absolute Monocytes 0.6 10^3/uL (0.1-0.6); Absolute Neutrophils 5.3 10^3/uL (1.4-6.5); Hematocrit 31.7 % (39.0-52.0); Hemoglobin 10.7 g/dL (13.0-18.0); Mean Corp Hgb Conc. 33.8 g/dL (33.0-37.0); Mean Corpuscular Hgb 31.7 pg (27.0-31.0); Mean Corpuscular Volume 93.8 fL (80.0-94.0); Mean Platelet Volume 10.8 fL (7.4-10.4); Nucleated Red Blood Cells % 0 % (-); Platelet Count 133 10^3/uL (130-400); Red Blood Cell Count 3.38 10^6/uL (4.70-6.10); Red Cell Dist. Width 14.5 % (11.5-14.5); White Blood Cell Count 6.5 10^3/uL (4.8-10.8)
[2023-05-05 07:49] VITALS: BP 140/80
[2023-05-05] MEDS: KEPPRA 500 MG PO ×2 (07:51→19:40)
[2023-05-05] MEDS: FOLVITE 1 MG PO (07:51)
[2023-05-05] MEDS: CRESTOR 40 MG PO (07:52)
[2023-05-05] MEDS: THIAMINE INJECTION 200 MG IV ×2 (07:52→19:33)
[2023-05-05 07:54] LABS: Procalcitonin 0.91 ng/ml (0.0-0.25)
[2023-05-05 08:03] LABS: ALT (SGPT) 14 U/L (0-50); AST (SGOT) 21 U/L (17-59); Albumin 2.6 g/dl (3.5-5.0); Alkaline Phosphatase 81 U/L (38-126); Blood Urea Nitrogen 19 mg/dl (9-20); Calcium 8.5 mg/dl (8.4-10.2); Carbon Dioxide 25 mmol/L (22-30); Chloride 105 mmol/L (98-107); Estimated Creatinine Clearance 71 ml/min; Glucose 107 mg/dl (70-99); Potassium 3.6 mmol/L (3.5-5.1); Sodium 132 mmol/L (135-145); Total Bilirubin 0.9 mg/dl (0.2-1.3); Total Protein 4.8 g/dl (6.3-8.2); eGFR > 60.00
--- NOTE | 2023-05-05 10:12 | PTOTSP ---
Speech Therapy
Swallowing Function: Patient was observed with several bites of cracker and sips (straw) of thin liquids in which patient appeared to tolerate as he did not exhibit any overt clinical s/sx of aspiration or difficulty with mastication/ manipulation.
Patient denied any dysphagia complaints.
Recommendations:
1) Regular consistency solids and thin liquids
2) Standard aspiration precautions
3) Medications as tolerated
Plan: No further SUPERVISOR DAIRY [employer]ITATION intervention is indicated at this time as he appears to be demonstrating his baseline speech function. SUPERVISOR [employer]Y [employer]ITATION will sign off at this time.
--- NOTE | 2023-05-05 11:30 | W.PN.HOSP.TC ---
Today's Communication/Plan
-
cont current ABX
if cultures show contaminant, likely d/c tomorrow
Assessment / Plan
Assessment / Plan
pt is an 87 year old male
sepsis due to Acute hypoxic resp insufficiency due to bilateral PNA--now off O2- Pneumonia poorly responsive to OP tx---1 of 2 blood cultures positive for gram-positive cocci in clusters-await identification, might be coag neg staph-- Patient did
receive vancomycin--repeat blood cultures pending--apprec ID, cefepime
Hypotension with essential HTN---Improved today. Continue to hold lisinopril 2.5 mg daily, propranolol 60 mg daily--Status IV sepsis bolus
DINA due to sepsis--resolved--stop IVF
Daily alcohol use--Patient drinks 1 vodka martini daily--MSAS with protocol - low risk
CAD/ME/History of RCA stent--Continue aspirin, Crestor hold propranolol due to hypotension
Seizure disorder--Continue Keppra 500 mg twice daily
HLD--Continue Crestor 40 mg daily
Former smoker-Prior 1 pack a day 42 years stopped age 57
Mohs surgery to face/basal cell CA--stitches to come out Saturday
BPH/massive, bladder stones--Robotic prostatectomy stone removal December 2021--Hold Proscar 5 mg daily due to hypotension
OSAGE with bilateral hearing aids
DVT prophylaxis-Subcu Lovenox
DNR per patient was present at bedside for discussion
Anticipated Discharge: Within 24 hours
Subjective/Interval History
-
Date of Service: May 05, 2023
pt without c/o--was hoping to go home today but blood culture positive
Objective Data
-
Labs:
Laboratory Results
05/05/23
07:03
WBC 6.5
Hgb 10.7 L
Hct 31.7 L
Plt Count 133
Sodium 132 L
Potassium 3.6
Chloride 105
Carbon Dioxide 25
BUN 19
Creatinine 0.8
Glucose 107 H
Calcium 8.5
Total Bilirubin 0.9
AST 21
ALT 14
Alkaline Phosphatase 81
Vital Signs:
max temp for 24 hours
05/05/23
03:29
Temp 99.8 F
Vital Signs
Temp Pulse Resp BP Pulse Ox
98.4 F 76 16 140/80 93
05/05/23 07:49 05/05/23 07:49 05/05/23 07:49 05/05/23 07:49 05/05/23 07:49
I&O
05/04/23 05/05/23 05/06/23
06:59 06:59 06:59
Intake Total 480 / 480 1500 / 1500
Output Total 225 / 225 250 / 250
Balance 255 / 255 1250 / 1250
Review of Systems
-
All other systems: Reviewed and negative
Physical Exam
-
General: Well Developed, Well Nourished and No Apparent Distress
HEENT: Normocephalic; Negative Atraumatic (stitches along left ear due to Mohs surgery--due to come out Saturday)
Respiratory: Rhonchi (at bases bilaterally)
Cardiac: Regular Rhythm and S1/S2; Negative Murmur
GI: Soft, Nontender, Nondistended and Normal Bowel Sounds
Musculoskeletal: No Clubbing, No Cyanosis and No Edema
Skin: Warm
Neuro: Awake
--- NOTE | 2023-05-05 11:39 | W.PN.ID1 ---
Date of Service
Date of Service: May 05, 2023
Today's Communication
Continue Vanco/cefepime.
Assessment / Plan
# Coag-neg staph bacteremia 1 of 2 sets = contaminant
- repeat blood cx's pending
# Leukocytosis/ bandemia resolved.
# Reported fever at home.
# Pneumonia
-Recent PNA (04/03/23) treated with azithromycin and levofloxacin.
- 05/01/[address]: multifocal infiltrates
- Repeat CXR shows improving bibasilar opacity
- Patient symptomatically improving prior to admission
- Procalcitonin elevated 0.91
- Continue cefepime and Vancomycin.
#Additional Past Medical History:
Hypertension
Dyslipidemia
CAD status post stent
dCHF
Seizure
Pulmonary nodule
Prostate adenoma s/p partial prostatectomy
Skin cancer, h/o XRT, MOHs
Appendectomy
Cholecystectomy
Bilateral total knee replacement
Right hip replacement
Chief Complaint
-: Pneumonia
Subjective / Review of Systems
He states he feels fine.
Vital Signs / Physical Exam
Vital Signs
Vital Signs
Temp Pulse Resp BP Pulse Ox
98.4 F 76 16 140/80 93
05/05/23 07:49 05/05/23 07:49 05/05/23 07:49 05/05/23 07:49 05/05/23 07:49
Physical Exam
Constitutional: No Acute Distress and Comfortable
Pulmonary: Other (Left crackles)
Gastrointestinal: Soft, Non Tender and Non Distended
Objective Data
Lab Data
Lab Results
05/05/23 07:03
05/05/23 07:03
PT 15.8 Sec (11.4-14.6) H 05/03/23 22:58
INR 1.27 05/03/23 22:58
APTT 37.6 Sec (23.4-35.0) H 05/03/23 22:58
Estimated Creat Clear 71 ml/min 05/05/23 07:03
Lactic Acid Cancelled 05/03/23 19:43
Total Bilirubin 0.9 mg/dl (0.2-1.3) 05/05/23 07:03
GGT 17 U/L (15-73) 05/03/23 22:58
AST 21 U/L (17-59) 05/05/23 07:03
ALT 14 U/L (0-50) 05/05/23 07:03
Alkaline Phosphatase 81 U/L (38-126) 05/05/23 07:03
Most recent labs reviewed.
Micro Results:
05/05/23 02:12 Legionella Urinary Antigen - Final
Urine Negative for Legionella pneumophila Serogroup 1 antigen.
A negative result does not rule out the possiblity of
Legionella infection due to other serogroups or species of
Legionella. Clinical correlation is recommended.
Streptococcus pneumoniae Antigen (M - Final
Negative for Streptococcus pneumoniae antigen.
A negative result does not exclude infection with
Streptococcus pneumoniae. Clinical correlation is
recommended.
05/04/23 18:15 Blood Culture - Pending
Blood/Venous
05/03/23 19:58 Blood Culture - Preliminary
Blood/Venous Positive culture in progress
Gram Stain - Preliminary
05/03/23 19:58 Blood Culture - Preliminary
Blood/Venous No Growth in 24 hours- Final report to follow
05/04/23 18:14 Blood Culture - Pending
Blood/Venous
05/03/23 21:30 Influenza Types A & B (MITALI) - Final
Nasal Swab Negative for Influenza A & B, NAAT
Negative results must be combined with clinical observations
and patient history.
Nucleic Acid Amplification test (NAAT)performed on the
[employer] platform.
05/03/23 CXR: Bibasilar opacification at least in part suggesting pneumonia, improved on the right.
05/01/[address]: There is moderate patchy interstitial and confluent alveolar airspace disease in the right middle lobe and basilar portions of both lower lobes consistent with multifocal pneumonia. here is a 7 mm probably benign noncalcified
subpleural pulmonary nodule in the right upper lobe which could be further evaluated for stability with repeat noncontrast CT chest in 6-12 months.
04/03/23 CXR: New moderate bilateral lower lobe pneumonia.�
[2023-05-05 11:47] VITALS: BP 133/79
--- NOTE | 2023-05-05 14:15 | CM ---
Met with patient and at bedside
IMM explained and signed
[2023-05-05 15:33] VITALS: BP 129/88
--- NOTE | 2023-05-05 15:55 | W.PN.PUL3 ---
Today's Communication / Plan
-
Atbs
Assessment
-
Assessment:
Mr Jeffrey Shine is an 87/M adm 05-03 with fever and cough. Of note, recurrent resp infections starting with COVID in mid 2022, then bilateral infiltrates in early Apr 2023 and treated as outpatient with azithromycin/levofloxacin (negative RSV,
COVID, flu). Referred to pulm office for evaluation of cough and small pulmonary nodules on CT abd (Nov 2022, mm size of 6 mm at RLL, 4mm RLL, 8 mm RLL), seen in initial visit by Dr Cintron on 04-24, rec dedicated chest CT, PFT and follow up in [address] 05-01-23 showed new dense patchy infiltrates in lower lobes and RML, a spot of GGO in RUL, 7 mm (probably benign) nodule at RUL. called pulm office reported patient with cough, was not feeling well, temp up to 101F, POx 90-93% and
was advised to come to ER. At ER, BP 96/56, started on IV atbs (vanco/levof) and fluids
At time of visit, on RA, conversant, states cough has resolved since adm 05-03. Denies dyspnea at rest, CP, n/v/d, dysphagia.
Impression:
Bilateral patchy dense pulm infiltrates, RUL GGO opacity
Resolved leukocytosis
GPC clusters on 04/02 blood cxs 05-03
Interim mild anemia
Resolved hyponatremia and ^Cr
Normal LA
Abnormal UA: bacteriuria
COVID/flu/Leg-Strep UAgs negative
PCT elevated
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
HTN
CAD
Seizures on levetiracetam
Prostate adenoma s/p partial prostatectomy
Skin cancer, s/o XRT, Mohs
Appendectomy
Cholecystectomy
Bilateral TKR
R hip replacement
Former smoker
Plan:
Resp feliciano stable on RA, POx 95% at rest
Reports interim resolution of cough since adm
IS
Acapella valve
Recent bilateral basilar infiltrates on CXR, s/p therapy with azithomycin/levofloxacin as outpatient
Low BP, hyponatremia, ^Cr, quickly resolved with IVFs on DOA
CXR from adm with enlarging basilar infiltrates as c/w 04-03; but no fever, tachycardia, tachypnea
CXR findings correspond to CT findings from 05-01
Ruled out aspiration: negative speech evaluation
Sputum cx, not yet collected
Follow blood cxs (one set with CoNS, contaminant, rest negative so far)
Continue vancomycin for time being
As rec by ID, changed levofloxacin with cefepime
Return to follow up with [facility] upon d/c, follow with Dr Cintron
D/w Mr Shine and his at bedside
Diagnostic tests:
CXR 05-03-23 c/w 04-03-23, no previous films. Baseline with bibasilar infiltrates. Current film with increased R basilar and L basilar infiltrates
Chest CT 05-01-23
New dense patchy infiltrates in lower lobes and RML (as c/w CT abd Sept 2022), a spot of GGO in RUL, 7 mm (probably benign) nodule at RUL.
TTE 06-12-21
CONCLUSIONS
Left ventricular ejection fraction is 70-75%. Normal regional wall motion.
Stage I diastolic dysfunction suggestive of abnormal relaxation.
Normal right ventricular size and function.
Mitral valve opens normally. Mild moderate mitral regurgitation.
Trileaflet aortic valve. Aortic sclerosis without stenosis. Trace aortic regurgitation.
Mild tricuspid regurgitation. Estimated pulmonary artery pressure of 30-35 mmHg.
Mildly dilated aortic root with Sinus of Valsalva measuring 3.8 cm.
Compared to previous echo on 03/13/2019, slightly progressive mitral regurgitation is noted.
Subjective Data
-
Date of Service:
Date of Service: May 05, 2023
Chief Complaint: Pulmonary Follow Up
Subjective:
No major events reported
Remains on RA, resp feliciano stable
Review of Systems
General: Fever (n), Sweats (n), Chills (n) and Satisfactory Appetite
HEENT: Epistaxis (n) and Dysphagia
Cardiopulmonary: Dyspnea, Cough (n), Wheezing (n) and Chest Pain (n)
GI: Abdominal Pain (n), Nausea (n) and Vomiting (n)
Neuro: Weakness (n)
Objective Data
Data Reviewed
Vital Signs / I&O / Oxygen:
Vital Signs
Temp Pulse Resp BP Pulse Ox
98.3 F 73 18 129/88 95
05/05/23 15:33 05/05/23 15:33 05/05/23 15:33 05/05/23 15:33 05/05/23 15:33
Intake and Output
05/04/23 05/05/23 05/06/23
06:59 06:59 06:59
Intake Total 480 / 480 1500 / 1500
Output Total 225 / 225 250 / 250
Balance 255 / 255 1250 / 1250
SaO2 95
Nasal Cannula flow liters per 2
minute
Physical Exam
General: Comfortable
HEENT: Normocephalic and Moist Mucous Membranes
Cardiovascular: Regular Rhythm (n), Murmur (n) and Peripheral Edema (n)
Respiratory: Crackles (trace), Rhonchi, Non-Labored Respirations and Stridor (n)
GI: Soft, Non Distended and Non Tender
Neurology: Awake, AO x 3 and No Motor Deficits
Skin: Dry
Labs/Micro/Reports
Lab Data
05/05/23 07:03
05/05/23 07:03
Microbiology
05/03/23 19:58 Blood/Venous Blood Culture - Preliminary
Coagulase neg. staphylococcus
Additional testing on request
05/03/23 19:58 Blood/Venous Gram Stain - Preliminary
05/05/23 02:12 Urine Legionella Urinary Antigen - Final
Negative for Legionella pneumophila Serogroup 1 antigen.
A negative result does not rule out the possiblity of
Legionella infection due to other serogroups or species of
Legionella. Clinical correlation is recommended.
05/05/23 02:12 Urine Streptococcus pneumoniae Antigen (M - Final
Negative for Streptococcus pneumoniae antigen.
A negative result does not exclude infection with
Streptococcus pneumoniae. Clinical correlation is
recommended.
05/03/23 19:58 Blood/Venous Blood Culture - Preliminary
No Growth in 24 hours- Final report to follow
05/03/23 21:30 Nasal Swab Influenza Types A & B (MITALI) - Final
Negative for Influenza A & B, NAAT
Negative results must be combined with clinical observations
and patient history.
Nucleic Acid Amplification test (NAAT)performed on the
[employer] platform.
[2023-05-05] MEDS: LOVENOX 30 MG SC (17:47)
[2023-05-05 18:35] VITALS: BP 137/90
[2023-05-05 23:45] VITALS: BP 118/85
[2023-05-06 00:20] VITALS: BP 118/85
--- NOTE | 2023-05-06 03:16 | PTCARENOTE ---
Pt in NAD, reports no SOB or CP this shift. VSS. Pt very RESIGHINI, hearing aid to R ear. rested comfortably overnight.
[2023-05-06 03:28] VITALS: BP 143/93
[2023-05-06] MEDS: MAXIPIME 2000 MG IV (05:28)
[2023-05-06] MEDS: STERILE WATER FOR INJECTION 10 ML IV (05:28)
[2023-05-06 07:18] LABS: % Basophils 0.6 % (0-2); % Eosinophils 3.4 % (0-6); % Immature Granulocytes 0.8 % (0-0.5); % Lymphocytes 5.2 % (20.5-51.1); % Monocytes 14.3 % (1.7-9.3); % Neutrophils 75.7 % (42.2-75.2); Absolute Eosinophils 0.2 10^3/uL (0-0.7); Absolute Lymphocytes 0.3 10^3/uL (1.2-3.4); Absolute Monocytes 0.7 10^3/uL (0.1-0.6); Absolute Neutrophils 3.8 10^3/uL (1.4-6.5); Hematocrit 32.5 % (39.0-52.0); Mean Corp Hgb Conc. 33.8 g/dL (33.0-37.0); Mean Corpuscular Hgb 32.6 pg (27.0-31.0); Mean Corpuscular Volume 96.4 fL (80.0-94.0); Mean Platelet Volume 10.7 fL (7.4-10.4); Nucleated Red Blood Cells % 0 % (-); Platelet Count 146 10^3/uL (130-400); Red Blood Cell Count 3.37 10^6/uL (4.70-6.10); Red Cell Dist. Width 14.1 % (11.5-14.5)
[2023-05-06 07:53] LABS: ALT (SGPT) 19 U/L (0-50); AST (SGOT) 29 U/L (17-59); Albumin 2.6 g/dl (3.5-5.0); Alkaline Phosphatase 72 U/L (38-126); Blood Urea Nitrogen 16 mg/dl (9-20); Calcium 8.3 mg/dl (8.4-10.2); Carbon Dioxide 27 mmol/L (22-30); Chloride 105 mmol/L (98-107); Estimated Creatinine Clearance 82 ml/min; Glucose 107 mg/dl (70-99); Potassium 3.6 mmol/L (3.5-5.1); Sodium 135 mmol/L (135-145); Total Bilirubin 0.8 mg/dl (0.2-1.3); Total Protein 4.7 g/dl (6.3-8.2); eGFR > 60.00
[2023-05-06 08:19] VITALS: BP 145/94
[2023-05-06] MEDS: FOLVITE 1 MG PO (09:31)
[2023-05-06] MEDS: THIAMINE INJECTION 200 MG IV (09:31)
[2023-05-06] MEDS: CRESTOR 40 MG PO (09:31)
[2023-05-06] MEDS: KEPPRA 500 MG PO (09:31)
[2023-05-06] MEDS: FLUSH (NSS) 2 FLUSH IV (09:32)
[2023-05-06 10:13] VITALS: BP 148/91; PULSE 86
--- NOTE | 2023-05-06 10:17 | CM ---
Patient seen bedside, patient reports no new concerns at this time. Patient denies any needs upon discharge. CM will continue to follow for discharge planning needs.
Plan; home no needs.
--- NOTE | 2023-05-06 11:41 | W.PN.PUL3 ---
Today's Communication / Plan
-
Atb
CPT
Assessment
-
Assessment:
Mr Jeffrey Shine is an 87/M adm 05-03 with fever and cough. Of note, recurrent resp infections starting with COVID in mid 2022, then bilateral infiltrates in early Apr 2023 and treated as outpatient with azithromycin/levofloxacin (negative RSV,
COVID, flu). Referred to pulm office for evaluation of cough and small pulmonary nodules on CT abd (Nov 2022, mm size of 6 mm at RLL, 4mm RLL, 8 mm RLL), seen in initial visit by Dr Cintron on 04-24, rec dedicated chest CT, PFT and follow up in [address] 05-01-23 showed new dense patchy infiltrates in lower lobes and RML, a spot of GGO in RUL, 7 mm (probably benign) nodule at RUL. called pulm office reported patient with cough, was not feeling well, temp up to 101F, POx 90-93% and
was advised to come to ER. At ER, BP 96/56, started on IV atbs (vanco/levof) and fluids
At time of visit, on RA, conversant, states cough has resolved since adm 05-03. Denies dyspnea at rest, CP, n/v/d, dysphagia.
Impression:
Bilateral patchy dense pulm infiltrates, RUL GGO opacity
Resolved leukocytosis
GPC clusters on 04/02 blood cxs 05-03
Interim mild anemia
Resolved hyponatremia and ^Cr
Normal LA
Abnormal UA: bacteriuria
COVID/flu/Leg-Strep UAgs negative
PCT elevated
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
HTN
CAD
Seizures on levetiracetam
Prostate adenoma s/p partial prostatectomy
Skin cancer, s/o XRT, Mohs
Appendectomy
Cholecystectomy
Bilateral TKR
R hip replacement
Former smoker
Plan:
Resp feliciano stable on RA, POx 93% at rest
Reports interim resolution of cough since adm
IS
Acapella valve
Remains afebrile and hemodyn stable
Recent bilateral basilar infiltrates on CXR, s/p therapy with azithomycin/levofloxacin as outpatient
Low BP, hyponatremia, ^Cr, quickly resolved with IVFs on DOA
CXR from adm with enlarging basilar infiltrates as c/w 04-03; but no fever, tachycardia, tachypnea
CXR findings correspond to CT findings from 05-01
Ruled out aspiration: negative speech evaluation
Sputum cx, not collected, cough resolved
Follow blood cxs (one set with CoNS, contaminant, rest negative so far)
Continue vancomycin for time being, as rec by ID, changed levofloxacin with cefepime
Return to follow up with [facility]T upon d/c, follow with Dr Cintron
D/w Mr Shine and his at bedside 05-05
D/w Mr Shine
Diagnostic tests:
CXR 05-03-23 c/w 04-03-23, no previous films. Baseline with bibasilar infiltrates. Current film with increased R basilar and L basilar infiltrates
Chest CT 05-01-23
New dense patchy infiltrates in lower lobes and RML (as c/w CT abd Sept 2022), a spot of GGO in RUL, 7 mm (probably benign) nodule at RUL.
TTE 06-12-21
CONCLUSIONS
Left ventricular ejection fraction is 70-75%. Normal regional wall motion.
Stage I diastolic dysfunction suggestive of abnormal relaxation.
Normal right ventricular size and function.
Mitral valve opens normally. Mild moderate mitral regurgitation.
Trileaflet aortic valve. Aortic sclerosis without stenosis. Trace aortic regurgitation.
Mild tricuspid regurgitation. Estimated pulmonary artery pressure of 30-35 mmHg.
Mildly dilated aortic root with Sinus of Valsalva measuring 3.8 cm.
Compared to previous echo on 03/13/2019, slightly progressive mitral regurgitation is noted.
Subjective Data
-
Date of Service:
Date of Service: May 06, 2023
Chief Complaint: Pulmonary Follow Up
Subjective:
No major events reported
Remains on RA, afebrile, hemodyn stable
Cough remains resolved
Review of Systems
General: Fever (n), Sweats (n), Chills (n) and Satisfactory Appetite
HEENT: Epistaxis (n) and Dysphagia (n)
Cardiopulmonary: Dyspnea (n at rest on O2), Cough (n), Wheezing (n) and Chest Pain
GI: Abdominal Pain (n), Nausea and Vomiting
Neuro: Weakness (n)
Objective Data
Data Reviewed
Vital Signs / I&O / Oxygen:
Vital Signs
Temp Pulse Resp BP Pulse Ox
99.5 F 89 14 145/94 93
05/06/23 08:19 05/06/23 08:19 05/06/23 08:19 05/06/23 08:19 05/06/23 08:19
Intake and Output
05/05/23 05/06/23 05/07/23
06:59 06:59 06:59
Intake Total 1500 / 1500 830 / 830
Output Total 250 / 250
Balance 1250 / 1250 830 / 830
SaO2 93
Nasal Cannula flow liters per 2
minute
Physical Exam
General: Comfortable
HEENT: Normocephalic and Moist Mucous Membranes
Cardiovascular: Regular Rhythm (n), Murmur (n) and Peripheral Edema (n)
Respiratory: Crackles (trace), Rhonchi, Non-Labored Respirations and Stridor (n)
GI: Soft, Non Distended and Non Tender
Neurology: Awake, AO x 3 and No Motor Deficits
Skin: Dry
Labs/Micro/Reports
Lab Data
05/06/23 06:53
05/06/23 06:53
Microbiology
05/03/23 19:58 Blood/Venous Blood Culture - Preliminary
Coagulase neg. staphylococcus
Additional testing on request
05/03/23 19:58 Blood/Venous Gram Stain - Preliminary
05/03/23 19:58 Blood/Venous Blood Culture - Preliminary
No Growth in 48 hours- Final report to follow
05/04/23 18:14 Blood/Venous Blood Culture - Preliminary
No Growth in 24 hours- Final report to follow
05/04/23 18:15 Blood/Venous Blood Culture - Preliminary
No Growth in 24 hours- Final report to follow
05/05/23 02:12 Urine Legionella Urinary Antigen - Final
Negative for Legionella pneumophila Serogroup 1 antigen.
A negative result does not rule out the possiblity of
Legionella infection due to other serogroups or species of
Legionella. Clinical correlation is recommended.
05/05/23 02:12 Urine Streptococcus pneumoniae Antigen (M - Final
Negative for Streptococcus pneumoniae antigen.
A negative result does not exclude infection with
Streptococcus pneumoniae. Clinical correlation is
recommended.
05/03/23 21:30 Nasal Swab Influenza Types A & B (MITALI) - Final
Negative for Influenza A & B, NAAT
Negative results must be combined with clinical observations
and patient history.
Nucleic Acid Amplification test (NAAT)performed on the
[employer] platform.
[2023-05-06 12:00] VITALS: BP 143/85
--- NOTE | 2023-05-06 13:45 | W.PN.HOSP.TC ---
Addendum entered and electronically signed by Florentin Matson MD 05/06/23 15:50:
Discussed with ID who recommends switching to oral doxycycline and cefuroxime.
Total time of discharge 32-minute
Original Note:
Today's Communication/Plan
-
DC planning
Assessment / Plan
Assessment / Plan
pt is an 87 year old male
sepsis due to Acute hypoxic resp insufficiency due to bilateral PNA--now off O2- Pneumonia poorly responsive to OP tx---1 of 2 blood cultures positive for gram-positive cocci in clusters- coag neg staph-suspected contaminant-- Patient did receive
vancomycin--repeat blood cultures neg--apprec ID, cefepime
Hypotension with essential HTN---resolved Continue to hold lisinopril 2.5 mg daily, propranolol 60 mg daily--Status IV sepsis bolus
DINA due to sepsis--resolved--stop IVF
Daily alcohol use--Patient drinks 1 vodka martini daily--MSAS with protocol - low risk
CAD/AK/History of RCA stent--Continue aspirin, Crestor hold propranolol due to hypotension
Seizure disorder--Continue Keppra 500 mg twice daily
HLD--Continue Crestor 40 mg daily
Former smoker-Prior 1 pack a day 42 years stopped age 57
Mohs surgery to face/basal cell CA--stitches to come out Saturday
BPH/massive, bladder stones--Robotic prostatectomy stone removal December 2021--Hold Proscar 5 mg daily due to hypotension
AKHIOK with bilateral hearing aids
DVT prophylaxis-Subcu Lovenox
DNR per patient was present at bedside for discussion
DC Home if ok from ID standpoint
Anticipated Discharge: Today
Subjective/Interval History
-
Date of Service: May 06, 2023
Feeling improved.
No fever or chills.
Denies shortness of breath at rest.
On room air.
No GI symptoms of nausea vomiting. Tolerating diet.
Objective Data
-
Labs:
Laboratory Results
05/06/23
06:53
WBC 5.0
Hgb 11.0 L
Hct 32.5 L
Plt Count 146
Sodium 135
Potassium 3.6
Chloride 105
Carbon Dioxide 27
BUN 16
Creatinine 0.7
Glucose 107 H
Calcium 8.3 L
Total Bilirubin 0.8
AST 29
ALT 19
Alkaline Phosphatase 72
Vital Signs:
Vital Signs
Temp Pulse Resp BP Pulse Ox
97.7 F 77 17 143/85 93
05/06/23 12:00 05/06/23 12:00 05/06/23 12:00 05/06/23 12:00 05/06/23 12:00
I&O
05/05/23 05/06/23 05/07/23
06:59 06:59 06:59
Intake Total 1500 / 1500 830 / 830
Output Total 250 / 250
Balance 1250 / 1250 830 / 830
Review of Systems
-
Cardiac: Denies Chest Pain
Abdomen/GI: Denies Abdominal Pain
Neuro: Denies Dizzy
Physical Exam
-
General: No Apparent Distress
HEENT: Moist Mucous Membranes
Respiratory: Crackles (Bibasilar L>R); Negative Wheezes
Cardiac: Regular Rhythm and S1/S2; Negative Tachycardic
Neuro: AO x 3
--- NOTE | 2023-05-06 15:33 | W.PN.ID1 ---
Date of Service
Date of Service: May 06, 2023
Today's Communication
Transition cefepime and Vancomycin to doxycycline 100mg po bid plus cefuroxime 500mg po bid x more days.
Assessment / Plan
# Coag-neg staph bacteremia 1 of 2 sets = contaminant
- repeat blood cx's neg to date
# Leukocytosis/ bandemia resolved.
# Reported fever at home.
# Pneumonia
-Recent PNA (04/03/23) treated with azithromycin and levofloxacin.
- 05/01/[address]: multifocal infiltrates
- Repeat CXR shows improving bibasilar opacity
- Patient symptomatically improving prior to admission
- Procalcitonin elevated 0.91
- Transition cefepime and Vancomycin to doxycycline 100mg po bid plus cefuroxime 500mg po bid x more days.
#Additional Past Medical History:
Hypertension
Dyslipidemia
CAD status post stent
dCHF
Seizure
Pulmonary nodule
Prostate adenoma s/p partial prostatectomy
Skin cancer, h/o XRT, MOHs
Appendectomy
Cholecystectomy
Bilateral total knee replacement
Right hip replacement
Chief Complaint
-: Pneumonia
Subjective / Review of Systems
Wants to go home. Per , he has improved.
Vital Signs / Physical Exam
Vital Signs
Vital Signs
Temp Pulse Resp BP Pulse Ox
97.7 F 77 17 143/85 93
05/06/23 12:00 05/06/23 12:00 05/06/23 12:00 05/06/23 12:00 05/06/23 12:00
Physical Exam
Constitutional: No Acute Distress and Comfortable
Pulmonary: Coarse (left lung crackles)
Gastrointestinal: Soft, Non Tender and Non Distended
Genito-Urinary: Negative CVA Tenderness
Extremities: Negative Edema
Objective Data
Lab Data
Lab Results
05/06/23 06:53
05/06/23 06:53
PT 15.8 Sec (11.4-14.6) H 05/03/23 22:58
INR 1.27 05/03/23 22:58
APTT 37.6 Sec (23.4-35.0) H 05/03/23 22:58
Estimated Creat Clear 82 ml/min 05/06/23 06:53
Lactic Acid Cancelled 05/03/23 19:43
Total Bilirubin 0.8 mg/dl (0.2-1.3) 05/06/23 06:53
GGT 17 U/L (15-73) 05/03/23 22:58
AST 29 U/L (17-59) 05/06/23 06:53
ALT 19 U/L (0-50) 05/06/23 06:53
Alkaline Phosphatase 72 U/L (38-126) 05/06/23 06:53
Most recent labs reviewed.
Micro Results:
05/03/23 19:58 Blood Culture - Preliminary
Blood/Venous Coagulase neg. staphylococcus
Additional testing on request
Gram Stain - Preliminary
05/03/23 19:58 Blood Culture - Preliminary
Blood/Venous No Growth in 48 hours- Final report to follow
05/04/23 18:14 Blood Culture - Preliminary
Blood/Venous No Growth in 24 hours- Final report to follow
05/04/23 18:15 Blood Culture - Preliminary
Blood/Venous No Growth in 24 hours- Final report to follow
05/05/23 02:12 Legionella Urinary Antigen - Final
Urine Negative for Legionella pneumophila Serogroup 1 antigen.
A negative result does not rule out the possiblity of
Legionella infection due to other serogroups or species of
Legionella. Clinical correlation is recommended.
Streptococcus pneumoniae Antigen (M - Final
Negative for Streptococcus pneumoniae antigen.
A negative result does not exclude infection with
Streptococcus pneumoniae. Clinical correlation is
recommended.
05/03/23 21:30 Influenza Types A & B (MITALI) - Final
Nasal Swab Negative for Influenza A & B, NAAT
Negative results must be combined with clinical observations
and patient history.
Nucleic Acid Amplification test (NAAT)performed on the
[employer] platform.
05/03/23 CXR: Bibasilar opacification at least in part suggesting pneumonia, improved on the right.
05/01/[address]: There is moderate patchy interstitial and confluent alveolar airspace disease in the right middle lobe and basilar portions of both lower lobes consistent with multifocal pneumonia. here is a 7 mm probably benign noncalcified
subpleural pulmonary nodule in the right upper lobe which could be further evaluated for stability with repeat noncontrast CT chest in 6-12 months.
04/03/23 CXR: New moderate bilateral lower lobe pneumonia.�
Care Review
Plan reviewed with: Physician (Dr. Matson)
--- NOTE | 2023-05-06 15:49 | W.DS.TRANS ---
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
-
Discharge Instructions:
Discharge Diagnosis/Procedures Sepsis due to acute hypoxemic respiratory
insufficiency due to bilateral pneumonia,
hypotension in association with essential
hypertension, acute kidney injury due to sepsis,
daily alcohol use, coronary artery disease/CA/
history of RCA stent, seizure disorder,
hyperlipidemia, former smoker, recent Mohs
surgery to face still with stitches, benign
prostatic hyperplasia with history of bladder
stones
Diet Low Sodium,Low Cholesterol
Additional Diets Should not drink alcohol
Activity As tolerated
Driving Restrictions As prior to admission
Bathing Restrictions None
Instructions:
Stand-Alone Forms:
Changes to Home Medications: Yes
Discharge Medications:
DC Medications w/original date entered in [employer]
aspirin 81 mg tablet,delayed release 81 mg PO DAILY Blood clot prevention/tx 03/12/19
lisinopril 2.5 mg tablet 2.5 mg PO DAILY Blood pressure 03/12/19
levetiracetam 500 mg tablet 500 mg PO BID #60 tabs 03/13/19
finasteride 5 mg tablet (Proscar) 5 mg PO DAILY Urinary issue 01/01/22
rosuvastatin 40 mg tablet (Crestor) 40 mg PO DAILY High cholesterol 01/01/22
propranolol 60 mg tablet 60 mg PO Daily Blood pressure 01/04/22
acetaminophen 500 mg tablet (Tylenol Extra Strength) 1,000 mg PO QIDPRN PRN fever 05/03/23
ibuprofen 200 mg tablet (Advil) 200 mg PO QIDPRN PRN mild pain 05/03/23
Home Medication Changes
Medication-cefpodoxime and doxycycline
Pending Results: No
--- NOTE | 2023-05-06 15:51 | W.DCSUMMARY ---
Discharge Summary
Discharge Data
Date of Admission: 05/03/23
Date of Discharge: 05/06/23
-
Pending Results: No
Hospital Course
Primary diagnosis:
Sepsis
Bilateral pneumonia
Acute hypoxic respiratory insufficiency which resolved
Acute kidney injury
Secondary diagnosis:
Coronary artery disease with prior AR and right coronary artery stent
Daily alcohol use
She is a disorder
Essential hypertension
Hyperlipidemia
Benign Prostatic hypertension s/p Robotic prostatectomy stone removal December 2021
Bladder stones
Hospital course:
Patient presented with fever, chills, shortness of breath and failed outpatient antibiotics for pneumonia. His chest x-ray showed bilateral pneumonia. He had associated hypoxemia which resolved with treatment. He was seen by pulmonary and
infectious disease who felt it is probably infectious pneumonia. He was improving with intravenous antibiotics. His leukocytosis resolved. Hypoxia resolved. He was transitioned to oral antibiotics and discharged home. He was advised to get a
follow-up chest x-ray in 3 to 4 weeks time. Follow-up chest x-ray here prior to discharge showing improvement.
He met criteria for sepsis secondary to pneumonia. There was initially hypotensive but that resolved quickly. He had an DINA which also resolved. No changes were made to his home medication regimen.
Consultants on board:
Pulmonary-Dr. Kee
Infectious disease-Dr. Vu
Discharge Plan
-
Patient Disposition: Home (Routine Discharge)
Discharge Diagnosis/Procedures: Sepsis due to acute hypoxemic respiratory insufficiency due to bilateral pneumonia, hypotension in association with essential hypertension, acute kidney injury due to sepsis, daily alcohol use, coronary artery
disease/AR/history of RCA stent, seizure disorder, hyperlipidemia, former smoker, recent Mohs surgery to face still with stitches, benign prostatic hyperplasia with history of bladder stones
Condition: Good
Diet: Low Cholesterol and Low Sodium
Additional Diets: Should not drink alcohol
Activity: As tolerated
Driving Restrictions: As prior to admission
Bathing Restrictions: None
Others Tests: chest xray in 3-4 weeks time -arrange it through your PCP
Referrals:
Roberta George DO [Family Provider] - in less than 1 week
Prescriptions:
New
cefuroxime axetil 500 mg tablet
500 mg PO BID Qty: 10 0RF
doxycycline hyclate 100 mg capsule
100 mg PO BID Qty: 10 0RF
Continued
aspirin 81 MG tablet,delayed release (DR/EC)
81 mg PO DAILY
Hold Instructions: Resume on 01/15/22.
lisinopril 2.5 MG tablet
2.5 mg PO DAILY
levetiracetam 500 MG tablet
500 mg PO BID Qty: 60 0RF
finasteride [Proscar] 5 mg Tablet
5 mg PO DAILY
rosuvastatin [Crestor] 40 mg Tablet
40 mg PO DAILY
propranolol 60 mg tablet
60 mg PO Daily
acetaminophen [Tylenol Extra Strength] 500 mg Tablet
1,000 mg PO QIDPRN PRN (Reason: fever)
Discontinued
ibuprofen [Advil] 200 mg Tablet
200 mg PO QIDPRN PRN (Reason: mild pain)
[2023-05-06 15:58] VITALS: BP 143/76
== END 2023-05-06 17:25 | disposition home or self-care (01) | DRG 871 ==
LOC: 4 EAST ACU 21:34
PROVIDERS: Clinical Nurse Specialist Family Health; Nurse Practitioner; ADMITTING PHYSICIAN Internal Medicine; ATTENDING PHYSICIAN Internal Medicine; CONSULT PHYSICIAN Internal Medicine Infectious Disease; CONSULT PHYSICIAN Internal Medicine Pulmonary Disease; EMERGENCY PHYSICIAN Student in an Organized Health Care Education/Training Program; FAMILY PHYSICIAN Family Medicine
DX: A41.89 Other specified sepsis (principal); J18.9 Pneumonia, unspecified organism; N17.9 Acute kidney failure, unspecified; E87.1 Hypo-osmolality and hyponatremia; I50.30 Unspecified diastolic (congestive) heart failure; I13.0 Hypertensive heart and chronic kidney disease with heart failure and stage 1 through stage 4 chronic kidney disease, or unspecified chronic kidney disease; Z66 Do not resuscitate; Z11.52 Encounter for screening for COVID-19; Z87.891 Personal history of nicotine dependence; I95.9 Hypotension, unspecified; N18.9 Chronic kidney disease, unspecified; R91.1 Solitary pulmonary nodule; G40.909 Epilepsy, unspecified, not intractable, without status epilepticus; I70.0 Atherosclerosis of aorta; R06.89 Other abnormalities of breathing; R09.02 Hypoxemia
CPT/HCPCS: 71046; 80053; 81003; 81015; 82010; 82077; 82977; 83605; 83735; 84100; 84145; 85025; 85610; 85730; 87040; 87150; 87205; 87449; 87502; 87811; 87899; 92610; 96361; 96365; 96375; 97116; 97162; 97166; 99285

== ENCOUNTER → 2023-06-05 09:42 | Outpatient (REF) | payer OTHER, SELFPAY | LOC: HWRAD 09:42 | PROVIDERS: ATTENDING PHYSICIAN Internal Medicine Critical Care Medicine; FAMILY PHYSICIAN Family Medicine | DX: Z87.01 Personal history of pneumonia (recurrent) (principal) | CPT/HCPCS: 71046 ==

== ENCOUNTER → 2023-07-19 10:22 | Outpatient (REF) | payer OTHER, SELFPAY | LOC: HWRAD 10:22 | PROVIDERS: ATTENDING PHYSICIAN Internal Medicine Critical Care Medicine; FAMILY PHYSICIAN Family Medicine | DX: Z87.01 Personal history of pneumonia (recurrent) (principal); R91.8 Other nonspecific abnormal finding of lung field | CPT/HCPCS: 71250 ==

== ENCOUNTER 2023-07-24 06:13 | Inpatient (IN) | payer OTHER, SELFPAY ==
--- NOTE | 2023-06-24 10:35 | CM ---
Patient is scheduled for an elective L THR on 07/24/23. Spoke with patient's prior to surgery via telephone. Introduced role of Orthopedic Navigator. She reports that she and patient live in a two story home. There are six steps to enter and a
flight of steps to the second floor. He currently functions independently and uses a rolling walker. He also has a cane. He has had VN services. PCP is Roberta George.
Discussed orthopedic program and post surgical plans. Reviewed anticipated length of stay and that goal is for patient to return home at discharge. Also reviewed outpatient PT. She is in agreement with tentative plan and states that she will be able
to provide support to patient when he returns home. Patient will go directly to outpatient PT.
Patient will complete online education.
Plan: Orthopedic Navigator will remain available to assist with the care of patient and will reassess discharge needs after surgery.
[2023-07-05 13:03] VITALS: BMI 30.5
[2023-07-05 15:25] VITALS: BMI 30.5
[2023-07-24] VITALS (20 sets, daily range): BP systolic 117–165; BP diastolic 59–92; PULSE 57; O2SAT 96; BMI 30.5
[2023-07-24] MEDS: TYLENOL 650 MG PO ×4 (07:58→20:13)
[2023-07-24] MEDS: CELEBREX 200 MG PO (07:58)
[2023-07-24] MEDS: NORMOSOL-R 1000 IV ×2 (07:59→10:23)
[2023-07-24] MEDS: ROXICODONE 5 MG PO (10:39)
[2023-07-24] MEDS: PROSCAR 5 MG PO (12:21)
[2023-07-24] MEDS: FLOMAX 0.400000000000000022 MG PO (12:21)
--- NOTE | 2023-07-24 12:53 | PTCARENOTE ---
1230 Patient unable to void, bladder scan indicates 455 ML of retained urine. Straight cath for 600 ML of rehana color urine.
[2023-07-24] MEDS: CRESTOR 40 MG PO (17:12)
[2023-07-24] MEDS: ASPIRIN 325 MG PO (17:12)
[2023-07-24] MEDS: ANCEF 5 IV (17:12)
[2023-07-24] MEDS: DECADRON 4 MG IV ×2 (17:13→23:08)
--- NOTE | 2023-07-24 18:07 | PTCARENOTE ---
Received patient from PACU around 1515 via bed in stable condition. Left hip dressing c/d/i. Left LE + pulses + sensation. Patient DTV. Call cavanaugh in reach.
[2023-07-24] MEDS: KEPPRA 500 MG PO (20:12)
[2023-07-24] MEDS: SENOKOT 17.1999999999999993 MG PO (20:13)
[2023-07-24] MEDS: COLACE PO (20:13)
[2023-07-24] MEDS: TORADOL 10 MG IV (20:14)
[2023-07-24] MEDS: NEURONTIN 300 MG PO (21:14)
[2023-07-24] MEDS: PEPCID 40 MG PO (21:14)
[2023-07-24] MEDS: BACTROBAN 2% OINTMENT 1 APPLIC NASAL (21:14)
[2023-07-24] MEDS: TYLENOL PO (23:06)
[2023-07-25] MEDS: ANCEF 5 IV (01:02)
[2023-07-25] MEDS: TYLENOL PO (03:16)
[2023-07-25 03:30] VITALS: BP 111/73
[2023-07-25 06:55] VITALS: BP 104/67
--- NOTE | 2023-07-25 08:37 | CM ---
Addendum entered by Sheridan Brady 07/25/23 11:14:
Patient did well with therapy. Recommendation is for patient to have VN services. Discussed with patient and ; they are in agreement. Options and PAC data reviewed; they select [facility].
Referral completed and sent to [facility] through [employer]. Confirmation received that they can accept referral. cash clerk to fax discharge instructions to0 [facility] when complete.
Original Note:
Reviewed chart and held rounds with PT, OT and nursing. Patient admitted as planned for elective L THR. Met with patient at bedside. Confirmed information previously obtained for assessment. Also discussed discharge plans. The plan is for patient to
return home at discharge. He will have support from his when he goes home. His will be present for therapy today. The plan, at this time, is for patient to go directly to outpatient PT. He does not think he has an appointment scheduled.
Will discuss with patient's when she arrives today.
Patient has a rolling walker, cane, raised toilet seat and he thinks a hip kit.
He will use [facility] pharmacy for discharge prescriptions.
[2023-07-25] MEDS: ASPIRIN 325 MG PO (08:58)
[2023-07-25] MEDS: BACTROBAN 2% OINTMENT 1 APPLIC NASAL (08:58)
[2023-07-25] MEDS: DECADRON 4 MG IV (08:59)
[2023-07-25] MEDS: SENOKOT 17.1999999999999993 MG PO (08:59)
[2023-07-25] MEDS: COLACE 100 MG PO (08:59)
[2023-07-25] MEDS: TORADOL 10 MG IV (08:59)
[2023-07-25] MEDS: KEPPRA 500 MG PO (09:00)
[2023-07-25] MEDS: FLOMAX 0.400000000000000022 MG PO (09:00)
[2023-07-25] MEDS: PROSCAR 5 MG PO (09:00)
[2023-07-25] MEDS: TYLENOL 650 MG PO (09:01)
[2023-07-25] MEDS: MOBIC 15 MG PO (09:01)
[2023-07-25] MEDS: FLUSH (NSS) 2 FLUSH IV (09:02)
--- NOTE | 2023-07-25 10:21 | W.PN.ORTHO ---
Today's Communication / Plan
-
d/c
Assessment
.
Distal Motor Intact: Yes
Dressing:
Clean, dry and intact.
Assessment:
Recent PNA -resolved pre-op-hx tobacco--IV Decadron while inpatient with oral steroid briefly OP-incentive spirometry -O2 sats stable RA-Cefadroxil ppx OP
Cognitive deficits at baseline- opioid minimization advised with supervision/assist from spouse--home care
Plan
.
Surgery / Date: Rafi COLLINS-Dr. Camacho 07/24/23
Activity:
Out of bed.
PT/OT
Discharge Plan: Home w/ VN
Subjective
.
.:
Patient resting comfortably.
Vital Signs and Labs
.
Vital Signs and Labs:
Lab Results
07/05/23 12:42
07/05/23 12:42
Temp Pulse Resp BP Pulse Ox
98.2 F 71 17 104/67 97
07/25/23 06:55 07/25/23 09:01 07/25/23 06:55 07/25/23 09:01 07/25/23 06:55
Non-invasive Hgb result: 12.3
Physical Exam
-
HEENT: No pallor, cyanosis, or jaundice. Throat clear.
NECK: Supple. No JVD.
RESPIRATORY: Lungs clear to auscultation.
CVS: S1, S2 normal. RRR.� No murmur, rub or gallop.
ABDOMEN: Soft, non-tender. No distension. BS+/normal.
EXTREMITIES: strength equal, no calf pain with palpation
PRODUCT EVANGELIST: AOx3. No focal deficits. senior engineering team leader grossly intact
--- NOTE | 2023-07-25 10:33 | W.DS.TRANS ---
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
-
Discharge Instructions:
Sleep Apnea Risk Intermediate
Discharge Diagnosis/Procedures L KARINA-Dr. Camacho 07/24/23
Diet As tolerated
Activity With assistance,With Walker
Driving Restrictions No driving
Bathing Restrictions OK to Shower
Other Services PT,VN,OT
Instructions:
Stand-Alone Forms: Total Hip/Knee Replacement D/C
Changes to Home Medications: Yes
Discharge Medications:
DC Medications w/original date entered in [facility]
lisinopril 2.5 mg tablet 2.5 mg PO DAILY Blood pressure 03/12/19
levetiracetam 500 mg tablet 500 mg PO BID #60 tabs 03/13/19
finasteride 5 mg tablet (Proscar) 5 mg PO DAILY Urinary issue 01/01/22
rosuvastatin 40 mg tablet (Crestor) 40 mg PO DAILY High cholesterol 01/01/22
propranolol 60 mg tablet 60 mg PO Daily Blood pressure 01/04/22
mupirocin 2 % topical ointment 1 applic topical BID infection prevention #1 tube 07/05/23
Saccharomyces boulardii 250 mg capsule (Florastor) 250 mg PO BID #1 cap 07/25/23
acetaminophen 500 mg tablet (Tylenol Extra Strength) 1,000 mg (2 x 500 mg) PO QID #0 tabs 07/25/23
aspirin 325 mg tablet 325 mg PO DAILY blood clot prevention #1 tab 07/25/23
cefadroxil 500 mg capsule 500 mg PO BID infection prevention #14 caps 07/25/23
docusate sodium 100 mg capsule (Colace) 100 mg PO BID stool softner #1 cap 07/25/23
famotidine 20 mg tablet 20 mg PO HS GI prophylaxis #30 tabs 07/25/23
gabapentin 300 mg capsule 300 mg PO HS sleep/pain #10 caps 07/25/23
magnesium hydroxide 400 mg/5 mL oral suspension (Milk of Magnesia) 30 ml PO HS PRN Constipation #1 mL 07/25/23
meloxicam 15 mg tablet 15 mg PO DAILY anti-inflammatory #14 tabs 07/25/23
oxycodone 5 mg tablet 5 mg PO Q6H PRN 1 tab moderate pain, 2 tabs severe pain #30 tabs 07/25/23
prednisone 10 mg tablet 40 mg (4 x 10 mg) PO TAPER inflammation #20 tabs 07/25/23
sennosides 8.6 mg tablet (Senokot) 17.2 mg (2 x 8.6 mg) PO BID laxative #2 tabs 07/25/23
Home Medication Changes
cefadroxil 500 mg capsule 500 mg PO BID infection prevention #14 caps 07/25/23�
famotidine 20 mg tablet 20 mg PO HS GI prophylaxis #30 tabs 07/25/23�
gabapentin 300 mg capsule 300 mg PO HS sleep/pain #10 caps 07/25/23�
meloxicam 15 mg tablet 15 mg PO DAILY anti-inflammatory #14 tabs 07/25/23�
oxycodone 5 mg tablet 5 mg PO Q6H PRN 1 tab moderate pain, 2 tabs severe pain #30 tabs 07/25/23�
prednisone 10 mg tablet 40 mg (4 x 10 mg) PO TAPER inflammation #20 tabs 07/25/23�
Pending Results: No
[2023-07-25 11:12] VITALS: BP 111/69; BP 113/67; PULSE 68; O2SAT 98
[2023-07-25 12:03] VITALS: BP 116/64
== END 2023-07-25 14:05 | disposition home health service (06) | DRG 470 ==
LOC: 2 SOUTH 06:13
PROVIDERS: ADMITTING PHYSICIAN Orthopaedic Surgery; FAMILY PHYSICIAN Family Medicine
PROC: 0SRB03A Replacement of Left Hip Joint with Ceramic Synthetic Substitute, Uncemented, Open Approach (ICD-10-PCS; 2023-07-24)
DX: M16.12 Unilateral primary osteoarthritis, left hip (principal)
CPT/HCPCS: 36415; 73502; 83036; 86850; 86900; 86901; 87070; 97110; 97116; 97162; 97166; 97530; 97535; C1776

== ENCOUNTER → 2023-10-16 14:01 | Outpatient (REF) | payer OTHER, SELFPAY | LOC: HWRCS 14:01 | PROVIDERS: ATTENDING PHYSICIAN Internal Medicine; FAMILY PHYSICIAN Family Medicine | DX: I25.10 Atherosclerotic heart disease of native coronary artery without angina pectoris (principal); I34.0 Nonrheumatic mitral (valve) insufficiency; R60.0 Localized edema | CPT/HCPCS: 93306 ==

== ENCOUNTER → 2023-11-11 12:27 | Outpatient (REF) | payer OTHER, SELFPAY | LOC: HWRAD 12:27 | PROVIDERS: ATTENDING PHYSICIAN Internal Medicine Critical Care Medicine; FAMILY PHYSICIAN Family Medicine | DX: J84.9 Interstitial pulmonary disease, unspecified (principal) | CPT/HCPCS: 71250 ==

== ENCOUNTER → 2024-05-19 11:48 | Outpatient (REF) | payer OTHER, SELFPAY | LOC: HWRAD 11:48 | PROVIDERS: ATTENDING PHYSICIAN Internal Medicine Critical Care Medicine | DX: R91.8 Other nonspecific abnormal finding of lung field (principal) | CPT/HCPCS: 71250 ==